=== PATIENT | male | born 1975 | race African-American/Black ===

== ENCOUNTER 2016-10-21 14:34 | Emergency (ER) | payer OTHER ==
[~2016-10-21] VITALS: Ht 172.7 cm; Wt 63.0 kg
[2016-10-21] MEDS ORDERED: [UNRECOGNIZED DRUG - OTHER] (15:03)
[2016-10-21] MEDS ORDERED: [UNRECOGNIZED DRUG - OTHER] (15:03)
[2016-10-21] MEDS ORDERED: [UNRECOGNIZED DRUG - OTHER] (15:03)
[2016-10-21] MEDS ORDERED: OMEGA COMPLETE (15:03)
[2016-10-21] MEDS ORDERED: [UNRECOGNIZED DRUG - OTHER] (15:03)
[2016-10-21] MEDS ORDERED: LOOMIS ENZYMES (15:03)
[2016-10-21] MEDS ORDERED: [UNRECOGNIZED DRUG - OTHER] (15:03)
[2016-10-21 15:41] LABS: BASOPHILS % (AUTO) 0.6 % (0.0-2.0); EOSINOPHILS # (AUTO) 0.1 K/uL (0.0-0.7); HEMATOCRIT 43.8 % (40-50); HEMOGLOBIN 14.8 G/DL (14.0-18.0); LYMPHOCYTES # (AUTO) 1.6 K/UL (0.8-4.8); MEAN CORPUSCULAR HEMOGLOBIN 31.3 UUG (27.0-31.0); MEAN CORPUSCULAR HGB CONC 34 g/dL (32.0-37.0); MEAN CORPUSCULAR VOLUME 92.8 FL (82.0-92.0); MONOCYTES # (AUTO) 0.4 K/UL (0.1-1.30); MONOCYTES % (AUTO) 7.6 % (0.0-11.0); NEUTROPHILS # (AUTO) 3.6 K/UL (1.8-8.9); NEUTROPHILS % (AUTO) 62.8 % (38.5-71.5); PLATELET COUNT (AUTO) 260 K/UL (150-450); RED BLOOD CELL COUNT(AUTO) 4.72 MIL/UL (4.7-6.1); WHITE BLOOD COUNT (AUTO) 5.7 K/UL (4.0-11.2)
[2016-10-21 15:53] LABS: CREATININE 1.3 mg/dL (0.6-1.3); POTASSIUM 4.2 mmol/L (3.5-5.1)
[2016-10-21 15:59] LABS: BILIRUBIN,DIRECT 0.2 mg/dL (0.0-0.2); BILIRUBIN,TOTAL 0.8 mg/dL (0.2-1.0); TOTAL PROTEIN, SERUM 8.1 g/dL (6.4-8.2)
[2016-10-21 16:06] LABS: THYROID STIMULATING HORMONE 2.428 mIU/mL (0.358-3.740)
--- NOTE | 2016-10-21 16:49 | NUR ---
Patient discharged to home in stable conditon. Written and verbal after care instructions given. Patient verbalizes understanding of instructions. Stressed follow up.
== END 2016-10-21 16:50 | disposition home or self-care (01) ==
LOC: ER 14:34
DX: R42 Dizziness and giddiness (principal); J45.909 Unspecified asthma, uncomplicated; Z88.8 Allergy status to other drugs, medicaments and biological substances
CPT/HCPCS: 36415; 71010; 80048; 80076; 84443; 84484; 85025; 93005; 99285; A4663; 70030-TC

== ENCOUNTER 2017-09-22 23:16 | Emergency (ER) | payer SELFPAY ==
[~2017-09-22] VITALS: Ht 172.7 cm; Wt 63.5 kg
[~2017-09-22 23:16] MED LIST: LOOMIS ENZYMES; OMEGA COMPLETE; [UNRECOGNIZED DRUG - OTHER]; [UNRECOGNIZED DRUG - OTHER]; [UNRECOGNIZED DRUG - OTHER]; [UNRECOGNIZED DRUG - OTHER]; [UNRECOGNIZED DRUG - OTHER]
--- NOTE | 2017-09-23 00:18 | NUR ---
PT IN ROUTE TO CT IN WHEELCHAIR WITH TRANSPORTER
--- NOTE | 2017-09-23 00:35 | NUR ---
PT BACK FROM CT IN WHEELCHAIR WITH TRANSPORTER
[2017-09-23 01:49] VITALS: BP 115/72
--- NOTE | 2017-09-23 01:49 | NUR ---
Patient discharged to home in stable conditon WITH FAMILY TAKING PATIENT HOME. Written and verbal after care instructions given. Patient verbalizes understanding of instructions. WALKED OUT OF ER WITH NO DISTRESS NOTED
== END 2017-09-23 01:50 | disposition home or self-care (01) ==
LOC: ER 23:17
DX: J02.9 Acute pharyngitis, unspecified (principal); R51 Headache; J45.909 Unspecified asthma, uncomplicated; Z88.6 Allergy status to analgesic agent; Z88.8 Allergy status to other drugs, medicaments and biological substances; Z79.899 Other long term (current) drug therapy
CPT/HCPCS: 70450; A4663

== ENCOUNTER 2017-10-23 15:03 | Emergency (ER) | payer OTHER ==
[~2017-10-23] VITALS: Ht 172.7 cm; Wt 63.5 kg
[2017-10-23] MEDS ORDERED: IV NORMAL SALINE 1000 ML BAG IV ONE (16:00)
[2017-10-23 16:19] LABS: BASOPHILS % (AUTO) 0.8 % (0.0-2.0); EOSINOPHILS # (AUTO) 0.1 K/uL (0.0-0.7); HEMATOCRIT 42.9 % (36.7-47.1); HEMOGLOBIN 14.7 g/dL (12.5-16.3); LYMPHOCYTES # (AUTO) 2.4 K/uL (20.0-40.0); LYMPHOCYTES % (AUTO) 41.6 % (20.5-51.5); MEAN CORPUSCULAR HEMOGLOBIN 33.3 uug (23.8-33.4); MEAN CORPUSCULAR HGB CONC 34 g/dL (32.5-36.3); MEAN CORPUSCULAR VOLUME 97.2 fL (73.0-96.2); MONOCYTES # (AUTO) 0.4 K/uL (2.0-10.0); MONOCYTES % (AUTO) 6.8 % (0.0-11.0); NEUTROPHILS # (AUTO) 2.8 K/uL (1.8-8.9); NEUTROPHILS % (AUTO) 48.8 % (38.5-71.5); PLATELET COUNT (AUTO) 226 K/uL (152-348); RED BLOOD CELL COUNT(AUTO) 4.42 MIL/uL (4.06-5.63); WHITE BLOOD COUNT (AUTO) 5.8 K/uL (3.6-10.2)
[2017-10-23 16:27] LABS: CREATININE 1.2 mg/dL (0.6-1.3); POTASSIUM 4.4 mmol/L (3.5-5.1)
[2017-10-23 16:33] LABS: BILIRUBIN,DIRECT 0.1 mg/dL (0.0-0.2); BILIRUBIN,TOTAL 0.4 mg/dL (0.2-1.0); TOTAL PROTEIN, SERUM 7.7 g/dL (6.4-8.2)
--- NOTE | 2017-10-23 17:28 | NUR ---
PT WAS EVALUATED BY DR INGRAM. PT WAS D/C TO HOME. D/C INSTRUCTIONS GIVEN TO THE PT.
[2017-10-23 17:29] VITALS: BP 131/76
== END 2017-10-23 17:30 | disposition home or self-care (01) ==
LOC: ER 15:05
DX: R10.10 Upper abdominal pain, unspecified (principal); J45.909 Unspecified asthma, uncomplicated; Z88.8 Allergy status to other drugs, medicaments and biological substances
CPT/HCPCS: 36415; 83690; 85025; A4663; J7030

== ENCOUNTER 2022-01-30 17:21 | Emergency (ER) | payer MEDICAID, OTHER ==
[~2022-01-30] VITALS: Ht 172.7 cm; Wt 72.6 kg
[2022-01-30] MEDS ORDERED: ALBUTEROL SULFATE 2.5 MG/3 ML NEBU ONE (17:52)
[2022-01-30] MEDS ORDERED: IPRATROPIUM BROMIDE 0.5 MG/2.5 ML NEBU ONE (17:52)
[2022-01-30] MEDS ORDERED: ALBUTEROL SULFATE 2.5 MG/ 0.5 ML NEBU NEB ONE (18:00)
[2022-01-30] MEDS ORDERED: IPRATROPIUM BROMIDE 0.5 MG/2.5 ML NEBU NEB ONE (18:00)
[2022-01-30 18:06] LABS: MEAN CORPUSCULAR HEMOGLOBIN 32.1 uug (23.8-33.4); MEAN CORPUSCULAR VOLUME 91.8 fL (73.0-96.2); PLATELET COUNT (AUTO) 315 K/uL (152-348)
[2022-01-30 18:15] LABS: CREATININE 1.2 mg/dL (0.6-1.3); POTASSIUM 3.8 mmol/L (3.5-5.1)
[2022-01-30 18:21] LABS: BILIRUBIN,TOTAL 0.3 mg/dL (0.2-1.0); TOTAL PROTEIN, SERUM 8.1 g/dL (6.4-8.2)
--- NOTE | 2022-01-30 18:56 | NUR ---
Patient prefers to sit on a chair, pending results and disposition, NAD.
--- NOTE | 2022-01-30 19:02 | NUR ---
Nursing SBAR to 7pm nurse Vanda.
--- NOTE | 2022-01-30 19:15 | NUR ---
Patient walked to the restroom with steady gait, NAD noted, A/Ox4
--- NOTE | 2022-01-30 19:40 | NUR ---
Patient's SO is in the room with them.
[2022-01-30] MEDS ORDERED: ALBU18HF2 IH (21:14)
--- NOTE | 2022-01-30 21:30 | NUR ---
Patient discharged to home in stable condition. Written and verbal after care instructions given. Patient verbalizes understanding of instructions. Stressed follow up or return to ER for worsening s/s. Patient is A/Ox4, walked with steady gait, NAD noted, accompanied by SO.
[2022-01-30 21:32] VITALS: BP 132/75
== END 2022-01-30 21:38 | disposition home or self-care (01) ==
LOC: ER 17:23
DX: R07.89 Other chest pain (principal); J45.909 Unspecified asthma, uncomplicated; Z88.6 Allergy status to analgesic agent
CPT/HCPCS: 36415; 71045; 83735; 84484; 85025; 93005; A4663; J3590

== ENCOUNTER 2022-05-08 04:10 | Emergency (ER) | payer SELFPAY ==
[~2022-05-08] VITALS: Ht 172.7 cm; Wt 70.3 kg
[~2022-05-08 04:10] MED LIST changes: +ALBU18HF2 IH; -LOOMIS ENZYMES; -OMEGA COMPLETE; -[UNRECOGNIZED DRUG - OTHER]; -[UNRECOGNIZED DRUG - OTHER]; -[UNRECOGNIZED DRUG - OTHER]; -[UNRECOGNIZED DRUG - OTHER]; -[UNRECOGNIZED DRUG - OTHER]
--- NOTE | 2022-05-08 04:25 | NUR ---
Dr Quintanilla evaluating patient at bedside. MSE in progress.
[2022-05-08] MEDS ORDERED: predniSONE 20 MG TABLET ONE (04:34)
[2022-05-08] MEDS ORDERED: ALBUTEROL SULFATE 2.5 MG/3 ML NEBU ONE (04:37)
[2022-05-08] MEDS: predniSONE 10 MG TABLET PO ONE (04:37)
[2022-05-08] MEDS ORDERED: IPRATROPIUM BROMIDE 0.5 MG/2.5 ML NEBU ONE (04:38)
--- NOTE | 2022-05-08 04:39 | NUR ---
Respiratory therapist at bedside.
[2022-05-08] MEDS ORDERED: ALBU8.5H8 IH (04:43)
[2022-05-08] MEDS ORDERED: PRED20TA PO (04:43)
--- NOTE | 2022-05-08 04:47 | NUR ---
Xray at bedside
[2022-05-08] MEDS: IPRATROPIUM BROMIDE 0.5 MG/2.5 ML NEBU NEB ONE (04:51)
[2022-05-08] MEDS: ALBUTEROL SULFATE 2.5 MG/3 ML NEBU NEB ONE (04:52)
--- NOTE | 2022-05-08 05:42 | NUR ---
Patient discharged to home in stable condition. Written and verbal after care instructions given. Patient verbalizes understanding of instructions. Stressed follow up or return to ER for worsening s/s.
[2022-05-08 05:43] VITALS: BP 135/84
== END 2022-05-08 05:43 | disposition home or self-care (01) ==
LOC: ER 04:17
DX: J45.901 Unspecified asthma with (acute) exacerbation (principal)
CPT/HCPCS: 99285; 71045; 94644; J7512; A4663; J3590

== ENCOUNTER 2022-06-07 20:25 | Emergency (ER) | payer SELFPAY ==
[~2022-06-07] VITALS: Ht 172.7 cm; Wt 68.0 kg
[~2022-06-07 20:25] MED LIST changes: +ALBU8.5H8 IH; +PRED20TA PO
[2022-06-07] MEDS ORDERED: predniSONE 50 MG TABLET PO ONE (20:45)
[2022-06-07] MEDS ORDERED: IPRATROPIUM BROMIDE 0.5 MG/2.5 ML NEBU NEB ONE (20:45)
[2022-06-07] MEDS ORDERED: ALBUTEROL SULFATE 2.5 MG/3 ML NEBU NEB ONE (20:45)
--- NOTE | 2022-06-07 20:45 | NUR ---
RT at bedside for respiratory treatment
[2022-06-07 20:53] LABS: HEMATOCRIT 45.1 % (36.7-47.1); MEAN CORPUSCULAR HEMOGLOBIN 31.5 uug (23.8-33.4); MEAN CORPUSCULAR VOLUME 94.3 fL (73.0-96.2); PLATELET COUNT (AUTO) 362 K/uL (152-348)
[2022-06-07] MEDS ORDERED: IPRATROPIUM BROMIDE 0.5 MG/2.5 ML NEBU ONE (20:53)
[2022-06-07] MEDS ORDERED: ALBUTEROL SULFATE 2.5 MG/3 ML NEBU ONE (20:53)
[2022-06-07 21:20] LABS: MAGNESIUM 2.3 mg/dL (1.8-2.4); POTASSIUM 4.7 mmol/L (3.5-5.1)
[2022-06-07] MEDS ORDERED: predniSONE 50 MG TABLET ONE (21:23)
[2022-06-07] MEDS ORDERED: FLUT10.62 INH (22:36)
[2022-06-07] MEDS ORDERED: PRED50TA PO (22:36)
[2022-06-07] MEDS ORDERED: ALBU6.7H9 INH (22:36)
[2022-06-07 22:56] VITALS: BP 115/75
== END 2022-06-07 22:56 | disposition home or self-care (01) ==
LOC: ER 20:25
DX: J45.902 Unspecified asthma with status asthmaticus (principal); Z88.6 Allergy status to analgesic agent
CPT/HCPCS: 99285; 80048; 83735; 85025; 36415; 94644; J7512; A4663; J3590